=== PATIENT | male | born 2000 | race Caucasian/White ===

== ENCOUNTER 2020-06-01 17:03 | Emergency (ER) | payer MEDICAID ==
[~2020-06-01] VITALS: Ht 165.1 cm; Wt 59.1 kg
[2020-06-01 17:05] VITALS: BP 126/87
== END 2020-06-01 17:57 | disposition home or self-care (01) ==
LOC: ER 17:03
DX: T43.201A Poisoning by unspecified antidepressants, accidental (unintentional), initial encounter (principal); R00.0 Tachycardia, unspecified; F32.9 Major depressive disorder, single episode, unspecified; F41.9 Anxiety disorder, unspecified; Y92.89 Other specified places as the place of occurrence of the external cause
CPT/HCPCS: 99281; 99283